=== PATIENT | male | born 1955 | race Caucasian/White ===

== ENCOUNTER 2021-06-11 13:01 | Outpatient (CLI) | payer MEDICARE | END 2021-06-11 13:02 | disposition home or self-care (01) | LOC: CSHRAD 13:01 | PROVIDERS: ATTEND Family Medicine | DX: M79.605 Pain in left leg (principal); M89.9 Disorder of bone, unspecified ==

== ENCOUNTER 2021-06-29 14:31 | Outpatient (CLI) | payer MEDICARE | END 2021-06-29 14:32 | disposition home or self-care (01) | LOC: CSHMRI 14:31 | PROVIDERS: ATTEND Internal Medicine Medical Oncology | DX: C79.51 Secondary malignant neoplasm of bone (principal); R93.7 Abnormal findings on diagnostic imaging of other parts of musculoskeletal system; I88.9 Nonspecific lymphadenitis, unspecified; S76.112A Strain of left quadriceps muscle, fascia and tendon, initial encounter; M89.9 Disorder of bone, unspecified ==